=== PATIENT | male | born 1965 | race Asian ===

== ENCOUNTER 2024-10-05 10:54 | Emergency (ER) | payer OTHER ==
[2024-10-05] MEDS ORDERED: LIDOCAINE 1% 20 ML MDV ONE (11:31)
[2024-10-05] MEDS ORDERED: TDAP (DIPHTH,PERTUSS(ACELL),TET VAC) 0.5 ML VIAL IMVAC ONE (11:31)
[2024-10-05] MEDS ORDERED: BUPIVACAINE 0.5% PF 10 ML VIAL ONE (11:31)
--- NOTE | 2024-10-05 11:33 | RAD REPORT ---
EXAM: XR RIGHT HAND HISTORY: Pain. SMASH INJURY COMPARISON: None TECHNIQUE: Multiple projections of the right hand submitted. FINDINGS: Soft tissue laceration involving the first finger with soft tissue swelling present. Linear densities in the soft tissues presumably radiopaque foreign bodies. No acute fracture seen. Laceration also likely present in the ulnar soft tissues with tiny foreign bodies.
--- NOTE | 2024-10-05 12:15 | ER ---
Nurse's Notes [facility] Name: Brett Acevedo Age: 59 yrs Sex: Male : 1965 Arrival Date: 10/05/2024 Time: 10:54 Bed 14 Private MD: Diagnosis: Laceration of deep palmar arch of right hand;Laceration with foreign body of right hand, initial encounter Presentation: 10/05 10:59 Chief complaint: Patient's son or daughter states: Lacerations to R hand and finger ss after [place]. Coronavirus screen: Client denies travel out of the [place] in the last 14 days. Ebola Screen: Patient denies exposure to infectious person. Patient denies travel to an Ebola-affected area in the 21 days before illness onset. Complicating Factors: fall [place]. Initial Sepsis Screen: Does the patient meet any 2 criteria? No. Patient's initial sepsis screen is negative. Does the patient have a suspected source of infection? No. Patient's initial sepsis screen is negative. Risk Assessment: Do you want to hurt yourself or someone else? Patient reports no desire to harm self or others. Onset of symptoms was October 05, 2024. 10:59 Method Of Arrival: Ambulatory ss 10:59 Acuity: ALE 3 ss Triage Assessment: 11:01 General: Appears in no apparent distress. uncomfortable, Behavior is calm, cooperative. rs5 Injury Description: Laceration. Historical: - Allergies: 11:19 No Known Allergies; rs5 - PMHx: 11:20 None; rs5 - PSHx: 11:20 None; rs5 - Immunization history:: Adult Immunizations up to date. - Infectious Disease History:: Denies. - Social history:: Smoking status: Patient denies any tobacco usage or history of. Screenin:05 [facility] ED Fall Risk Assessment (Adult) History of falling in the last 3 months, rs5 including since admission Yes- single mechanical fall (1 pt) Confusion or Disorientation No (0 pts) Intoxicated or Sedated No (0 pts) Impaired Gait No (0 pts) Mobility Assist Device Used No (0 pt) Altered Elimination No (0 pt) Score/Fall Risk Level 0 - 2 = Low Risk Oriented to surroundings, Maintained a safe environment. Abuse screen: Denies threats or abuse. Nutritional screening: No deficits noted. Tuberculosis screening: No symptoms or risk factors identified. Assessment: 11:05 General: Appears in no apparent distress. uncomfortable, Behavior is calm, cooperative. rs5 Pain: Complains of pain in right hand Pain does not radiate. Pain currently is 5 out of 10 on a pain scale. Quality of pain is described as aching, Is continuous. 11:05 Neuro: Level of Consciousness is awake, alert, obeys commands, Oriented to person, rs5 place, time, situation. Cardiovascular: Patient's skin is warm and dry. Respiratory: Airway is patent Respiratory effort is even, unlabored, Respiratory pattern is regular, symmetrical. GI: Abdomen is round non-distended, Abd is soft and non tender X 4 quads. : No signs and/or symptoms were reported regarding the genitourinary system. EENT: No signs and/or symptoms were reported regarding the EENT system. Derm: 2 cm laceration noted to right thumb, appears clean, uncontaminated, mild active bleeding noted. pressure dressing applied, provider notified. 11:06 Musculoskeletal: Range of motion: limited in right hand. rs5 12:19 Reassessment: Patient and/or family updated on plan of care and expected duration. Pain rs5 level reassessed. Patient is alert, oriented x 3, equal unlabored respirations, skin warm/dry/pink. Vital Signs: 10:59 BP 103 / 78; Pulse 68; Resp 15; Temp 98.2(TE); Pulse Ox 100% on R/A; Weight 56.25 kg; rs5 Height 5 ft. 11 in. ; Pain 10/10; 10:59 Body Mass Index 17.30 (56.25 kg, 180.34 cm) rs5 10:59 Pain Scale: Adult rs5 ED Course: 10:55 Patient arrived in ED. ra3 10:59 Bronwyn Brennan MD is Attending Physician. gb1 10:59 Baldemar King, RN is Primary Nurse. rs5 11:05 Patient has correct armband on for positive identification. Placed in gown. Bed in low rs5 position. Call light in reach. Side rails up X2. 11:05 No provider procedures requiring assistance completed. rs5 11:21 Triage completed. ss 11:25 Hand Right 3 View XRAY In Process Unspecified. EDMS 12:25 Provided Education on: discharge instructions . rs5 12:25 Patient did not have IV access during this emergency room visit. rs5 Administered Medications: 11:40 Not Given (Patient Objection): diph,pertus(acel),tetanus vac (pf)0.5 ml IM once; rs5 indicated for adults and teenagers 11 to 64 years of age 11:40 Drug: Boostrix Tdap IM 0.5 ml IM once; as a single dose Route: IM; Site: left deltoid; rs5 12:21 Follow up: Response: No adverse reaction rs5 11:55 Drug: Bupivacaine Infiltration (0.5 %) 1 vials 10 ml Infiltration once {Note: adm by rs5 provider at [facility].} Volume: 10 ml; Route: Infiltration; 12:20 Follow up: Response: No adverse reaction rs5 11:55 Drug: Lidocaine Infiltration (1 %) 1 vials 20 ml Infiltration once; to bedside {Note: rs5 adm by provider .} Volume: 20 ml; Route: Infiltration; 12:21 Follow up: Response: No adverse reaction rs5 Medication: 12:20 VIS not applicable for this client. rs5 Outcome: 12:15 Discharge ordered by . gb1 12:25 Discharged to home ambulatory, rs5 12:25 Condition: stable rs5 12:25 Discharge instructions given to patient, family, Instructed on discharge instructions, follow up and referral plans. medication usage, Demonstrated understanding of instructions, follow-up care, medications, Prescriptions given X 2, 12:30 Patient left the ED. rs5 Signatures: Dispatcher [employer] EDKY Aura Ho RN RN Baldemar King RN RN rs5 Bronwyn Brennan MD MD gb1 Alva, Ruby ra3 Corrections: (The following items were deleted from the chart) 12:19 12:17 General: Appears in no apparent distress. uncomfortable, Behavior is calm, rs5 cooperative, rs5 12:19 12:17 Pain: Complains of pain in right hand rs5 rs5
--- NOTE | 2024-10-05 12:15 | EDPHYS ---
Physician Documentation [facility] Name: Brett Acevedo Age: 59 yrs Sex: Male : 1965 Arrival Date: 10/05/2024 Time: 10:54 Bed 14 Private MD: ED Physician Bronwyn Brennan HPI: 10/05 12:17 This 59 yrs old Male presents to ER via Ambulatory with complaints of Laceration gb1 To Hand - right, Hand Injury. 12:17 59-year-old male with fell while fishing [place]. He has 2 lacerations on his gb1 right thumb and mid deep palmar arch. Bleeding is stopped with pressure. His whole right hand is painful 10 out of 10. He has no other diagnosed medical problems or other complaints today.. Historical: - Allergies: 11:19 No Known Allergies; rs5 - PMHx: 11:20 None; rs5 - PSHx: 11:20 None; rs5 - Immunization history:: Adult Immunizations up to date. - Infectious Disease History:: Denies. - Social history:: Smoking status: Patient denies any tobacco usage or history of. Exam: 12:17 Constitutional: This is a well developed, well nourished patient who is awake, alert, gb1 and in no acute distress. Head/Face: Normocephalic, atraumatic. Eyes: Pupils equal round and reactive to light, extra-ocular motions intact. Lids and lashes normal. Conjunctiva and sclera are non-icteric and not injected. Cornea within normal limits. Periorbital areas with no swelling, redness, or edema. ENT: Nares patent. No nasal discharge, no septal abnormalities noted. Tympanic membranes are normal and external auditory canals are clear. Oropharynx with no redness, swelling, or masses, exudates, or evidence of obstruction, uvula midline. Mucous membranes moist. Neck: Trachea midline, no thyromegaly or masses palpated, and no cervical lymphadenopathy. Supple, full range of motion without nuchal rigidity, or vertebral point tenderness. No Meningismus. Chest/axilla: Normal chest wall appearance and motion. Nontender with no deformity. No lesions are appreciated. Cardiovascular: Regular rate and rhythm with a normal S1 and S2. No gallops, murmurs, or rubs. Normal PMI, no JVD. No pulse deficits. Respiratory: Lungs have equal breath sounds bilaterally, clear to auscultation and percussion. No rales, rhonchi or wheezes noted. No increased work of breathing, no retractions or nasal flaring. Abdomen/GI: Soft, non-tender, with normal bowel sounds. No distension or tympany. No guarding or rebound. No evidence of tenderness throughout. Skin: Patient does have a right deep palmar arch 1 inch wound that is stellate, he also has 1/2 inch stellate wound on the right palm are first digit. Warm, dry with normal turgor. Normal color with no rashes, no lesions, and no evidence of cellulitis. Vital Signs: 10:59 BP 103 / 78; Pulse 68; Resp 15; Temp 98.2(TE); Pulse Ox 100% on R/A; Weight 56.25 kg; rs5 Height 5 ft. 11 in. ; Pain 10/10; 10:59 Body Mass Index 17.30 (56.25 kg, 180.34 cm) rs5 10:59 Pain Scale: Adult rs5 Laceration: 12:17 Wound Repair of 1cm ( 0.4in ) subcutaneous laceration to right hand. Distal gb1 neuro/vascular/tendon intact. Anesthesia: Regional Block with 10 mls of Lido/Marcaine, Regional Block with 5 mls of Lido/Marcaine. Wound prep: Extensive cleansing, Wound irrigation, Particulate matter removal, Wound debrided, Wound explored, Copious irrigation. Skin closed with 6 4-0 Prolene using interrupted sutures and sterile technique. Dressed with Bacitracin, non-adherent dressing. Patient tolerated well. 12:17 Wound Repair of 1.0cm ( 1in ) subcutaneous laceration to right hand, deep palmar arch. gb1 Irregularly shaped.. Skin/tissue flap noted.. Moderate contamination.. Possible foreign body or glass noted.. Distal neuro/vascular/tendon intact. Anesthesia: Regional Block with 5 mls of Lido/Marcaine. Wound prep: Extensive cleansing with betadine by me, Wound irrigation by me, Particulate matter removal, Wound debrided extensively, Wound explored extensively, Copious irrigation. Skin closed with 5 4-0 Prolene using interrupted sutures and sterile technique. Dressed with Bacitracin, non-adherent dressing. Patient tolerated well. MDM: 11:07 Medical Screening Exam initiated gb1 12:17 Differential diagnosis: superficial laceration. Data reviewed: vital signs, nurses gb1 notes. ED course: 5-year-old male with 2 lacerations secondary to a fall [place]. I have repaired the lacerations without incident. I will prophy prophylactically prescribe Cipro to cover cover vibrio which the patient had may have been exposed to. I did obtain an x-ray which showed foreign body of the laceration site. I have given the patient's nephew in [place] explicit return precautions for localized wound infection versus cellulitis. Patient's nephew as well the patient is compliant with this plan of care prior to discharge home today.. 10/05 11:18 Order name: Hand Right 3 View XRAY; Complete Time: 12:23 gb1 10/05 11:18 Order name: Dressing - Wound; Complete Time: 11:55 gb1 10/05 11:18 Order name: Gloves, Sterile; Complete Time: 11:55 gb1 10/05 11:18 Order name: Prolene, Sutures; Complete Time: 11:55 gb1 10/05 11:18 Order name: Setup Suture Tray; Complete Time: 11:55 gb1 Administered Medications: 11:40 Not Given (Patient Objection): diph,pertus(acel),tetanus vac (pf)0.5 ml IM once; rs5 indicated for adults and teenagers 11 to 64 years of age 11:40 Drug: Boostrix Tdap IM 0.5 ml IM once; as a single dose Route: IM; Site: left deltoid; rs5 12:21 Follow up: Response: No adverse reaction rs5 11:55 Drug: Bupivacaine Infiltration (0.5 %) 1 vials 10 ml Infiltration once {Note: adm by rs5 provider at [facility].} Volume: 10 ml; Route: Infiltration; 12:20 Follow up: Response: No adverse reaction rs5 11:55 Drug: Lidocaine Infiltration (1 %) 1 vials 20 ml Infiltration once; to bedside {Note: rs5 adm by provider .} Volume: 20 ml; Route: Infiltration; 12:21 Follow up: Response: No adverse reaction rs5 Disposition Summary: 10/05/24 12:15 Discharge Ordered Notes: Location: Home gb1 Condition: Stable gb1 Diagnosis - Laceration of deep palmar arch of right hand gb1 - Laceration with foreign body of right hand, initial encounter gb1 Followup: gb1 - With: Private Physician - When: - Reason: Re-evaluation by your physician Discharge Instructions: - Discharge Summary Sheet gb1 - Laceration Care, Adult, [id number] gb1 Forms: - Medication Reconciliation Form gb1 - Antibiotic Education gb1 - Prescription Opioid Use gb1 - Patient Portal Instructions gb1 - Leadership Thank You Letter gb1 Prescriptions: - mupirocin 2 % Topical ointment - apply 1 application TOPICAL route 2 times per day; 30 gram tube; Refills: 0, gb1 Product Selection Permitted - Cipro 500 mg Oral Tablet - take 1 tablet ORAL route every 12 hours for 7 days; 14 tablet; Refills: 0, gb1 Product Selection Permitted Signatures: Dispatcher [employer] Baldemar Lujan RN RN rs5 Bronwyn Brennan MD MD gb1
[2024-10-05 15:02] VITALS: BP 103/78; TEMP 98.2; O2SAT 100
== END 2024-10-05 12:30 | disposition home or self-care (01) ==
LOC: ER 10:54
DX: S61.421A Laceration with foreign body of right hand, initial encounter (principal)
CPT/HCPCS: 73130; 96372; 99284; 12041; J2003